=== PATIENT | female | born 1950 | race Caucasian/White ===

== ENCOUNTER → 2020-10-29 | Day surgery (SDC) | payer MEDICARE, OTHER ==
[~2020-10-29] VITALS: Ht 147.3 cm; Wt 44.5 kg
[~2020-10-29] MED LIST: ACETAMINOPHEN500 M1 PO; LEXAPRO 10MG TA10 MG PO; PRAVASTATIN SOD10 MG PO; PRINIVIL10 MG PO
[2020-10-29 11:43] LABS: CREATININE 0.72 mg/dL (0.51-0.95); POTASSIUM 3.9 mmol/L (3.5-5.1)
== END | disposition home or self-care (01) ==
LOC: FAS 09:25
PROVIDERS: Anesthesiology
DX: C34.90 Malignant neoplasm of unspecified part of unspecified bronchus or lung (principal); C79.9 Secondary malignant neoplasm of unspecified site; R93.89 Abnormal findings on diagnostic imaging of other specified body structures; J30.9 Allergic rhinitis, unspecified; F41.9 Anxiety disorder, unspecified; M19.90 Unspecified osteoarthritis, unspecified site; R05 Cough; I10 Essential (primary) hypertension; E78.5 Hyperlipidemia, unspecified; F32.9 Major depressive disorder, single episode, unspecified; Z87.891 Personal history of nicotine dependence; Z85.841 Personal history of malignant neoplasm of brain
CPT/HCPCS: 36415; 71045; 76000; 77001; 80048; C1788; J0690; J1644; J2001; J2250; J2405; J2704; J7120

== ENCOUNTER → 2021-05-02 | Day surgery (SDC) | payer MEDICARE, OTHER ==
[~2021-05-02] VITALS: Ht 147.3 cm; Wt 48.1 kg
[~2021-05-02] MED LIST changes: +CHEMO; +COLACE100 MG PO; +COMPAZINE10 MG PO; +FOLIC ACID1 MG PO; +MOTRIN600 MG PO; +OXY-IR 5MG5 MG PO
[2021-05-02 11:31] LABS: EOSINOPHIL 2.7 % (0-7); HCT 32.6 % (37.0-47.0); HGB 10.7 g/dl (12.5-16.0); LYMPHOCYTE 12.8 % (15-48); MCHC 32.8 g/dL (32.0-36.0); MCV 109.8 fL (78.0-100.0); MPV 9.4 fL (6.0-9.5); NEUTROPHIL 74.1 % (41-80); NRBC 0; PLT 294 K/uL (150-400); RBC 2.97 M/uL (4.20-5.40); RDW 14.6 % (11.5-14.0)
== END | disposition home or self-care (01) ==
LOC: FAS 10:20
PROVIDERS: Anesthesiology
DX: K40.20 Bilateral inguinal hernia, without obstruction or gangrene, not specified as recurrent (principal); I10 Essential (primary) hypertension; E78.5 Hyperlipidemia, unspecified; Z98.51 Tubal ligation status; Z87.891 Personal history of nicotine dependence; Z95.828 Presence of other vascular implants and grafts; R94.31 Abnormal electrocardiogram [ECG] [EKG]
CPT/HCPCS: 36415; 85025; J0690; J1644; J2250; J2405; J2704; J3010; J7120